=== PATIENT | male | born 1940 | race Caucasian/White ===

== ENCOUNTER 2017-08-22 08:11 | Outpatient (CLI) | payer MEDICARE ==
--- NOTE | 2017-08-22 11:27 | MRI ---
MRI ABDOMEN WITHOUT CONTRAST: HISTORY: Pancreatic cyst followup. Abdominal pain. History of cyst in the pancreas as well as aneurysm. 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 TECHNIQUE: Multiplanar, multisequence MRI of the abdomen performed without contrast. MRCP was performed. Thre e-D rendering provided. FINDINGS: Within the left splenic artery is a round heterogeneously T2 hyperintense muscle mass measuring 3.9 x 3 x 3.4 cm. There appears to be some internal cystic degeneration. This mass displaces the left adrenal gland laterally. This mass does not touch the pancreatic parenchyma. The only organ that i t abuts is the diaphragm and the splenic artery. There is some mild diffusion restriction within portions of the periphery of this mass which is roun d and well defined. This is incompletely evaluated without intravascular contrast. No intrahepatic or extrahepatic biliary dilatation. 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 No significant dilatation of the main pancreatic duct. No sig nificant hepatic steatosis. Marrow signal appears normal of the spine on the single shot T2 images. Small sliding hiatal hernia. The spleen is unremarkable. IMPRESSION: 1. Well-defined mass in left retroperitoneum measuring 3.8 x 3 x 3.4 cm displacing the left adrenal gland laterally, abutting the splenic artery, and separate from the pancreatic parenchyma. This is incompletely evaluated without intravascular contrast. Differential includes a thrombosed aneurysm of the splenic artery given the history of splenic artery aneurysm. Paraganglioma is also within t he differential. Neoplastic mass at the adrenal gland is also within the differential as well as ab normal lymph node. Followup CT with and without contrast is recommended. Surgical consultation is also advised. Given that the patient has a history of splenic artery aneurysm, recommend correlatio n with prior imaging. If this is unchanged or known to be due to the post treatment changes of sple david artery aneurysm, clinical follow up suggested. 2. 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 Contrast is needed to evaluate for findings of malignancy s uch as nodular enhancement and septations. Given their size, a followup in 6 months-1 year MRI abdo men with and without contrast is recommended. CODE T POS: OFF
== END 2017-08-22 08:12 | disposition home or self-care (01) ==
LOC: MRI 08:11
PROVIDERS: ATTEND Internal Medicine Gastroenterology
DX: K86.2 Cyst of pancreas (principal); N28.89 Other specified disorders of kidney and ureter
CPT/HCPCS: 74181

== ENCOUNTER 2017-09-05 10:35 | Outpatient (CLI) | payer MEDICARE ==
[2017-09-05] MEDS ORDERED: Iopamidol 370 76% 100 ML VIAL ONE (16:32)
--- NOTE | 2017-09-05 17:30 | CT ---
CT ABDOMEN WITH AND WITHOUT IV CONTRAST: CT PELVIS WITH IV CONTRAST: 09/05/2017 HISTORY: Abnormal MRI abdomen. FINDINGS: Linear and parenchymal densities are seen in each lung base, probably related to atelectasis and/or scarring. Please see described, well defined, retroperitoneal mass, to the left of midline, posterior to the s plenic artery and abutting the left adrenal gland, which is again present. This mass does demonstra te enhancement pre and post contrast imaging. This does not appear to involve the left adrenal gland and is though t to result in mass effect and displaces the left adrenal gland, as opposed to arises from the left adrenal gland. The splenic also appears separate from this structures and this is not related to a s plenic artery aneurysm. Post cholecystectomy changes are present. The liver, spleen, pancreas, and right adrenal gland demonstrate a normal CT appearance. There are two nonobstructing, 3 to 4 mm calculi in the mid portion, superior pole, left kidney. The prostate gland is enlarged and measures 5.3 cm in transverse dimensions, with resultant mass eff ect on the posterior-inferior aspect of the urinary bladder. The urinary bladder del cid do appear th ickened. While the urinary bladder is decompressed, the del cid are more thick than typically expecte d, measuring 8 to 9 mm in thickness. This could be related to cystitis in the correct clinical scen ario, but no perifascicular inflammatory changes are identified. There is colonic diverticulosis. The opacified small bowel is normal in caliber. Vascular calcifications are seen in the abdominal aorta and iliac arteries. No fluid collection or free fluid is seen in the abdomen or pelvis. IMPRESSION: 1. Well defined left retroperitoneal mass is again seen, which again displaces the left adrenal gla nd laterally and abuts the splenic artery. Differential considerations include paraganglioma or abn ormally enlarged lymph node versus other neoplastic mass. 2. Thickening of the del cid of the urinary bladder. While the urinary bladder is decompressed, the del cid of the urinary bladder are more thick than expected. Findings could be relate to cystitis or longstanding obstruction. The prostate gland is enlarged. 3. Colonic diverticulosis. 4. Nonobstructing left renal calculi. 5. Bibasilar atelectasis and/or scarring. 6. Post cholecystectomy changes. POS: NIRU
== END 2017-09-05 10:36 | disposition home or self-care (01) ==
LOC: CT 10:35
PROVIDERS: ATTEND Internal Medicine Gastroenterology
DX: R93.5 Abnormal findings on diagnostic imaging of other abdominal regions, including retroperitoneum (principal); R19.09 Other intra-abdominal and pelvic swelling, mass and lump; N20.0 Calculus of kidney; N32.89 Other specified disorders of bladder; K57.30 Diverticulosis of large intestine without perforation or abscess without bleeding; Z90.49 Acquired absence of other specified parts of digestive tract
CPT/HCPCS: 72193; 74170

== ENCOUNTER 2022-01-19 11:55 | Outpatient (CLI) | payer MEDICARE ==
[~2022-01-19 11:55] MED LIST: Magnevist 469MG/ML 20 ML VIAL ONE
== END 2022-01-19 11:56 | disposition home or self-care (01) ==
LOC: MRI 11:55
PROVIDERS: ATTEND Physician Assistant
DX: M54.50 Low back pain, unspecified (principal); M47.816 Spondylosis without myelopathy or radiculopathy, lumbar region; M51.36 Other intervertebral disc degeneration, lumbar region
CPT/HCPCS: 72158; 82565